=== PATIENT | female | born 1995 | race Caucasian/White ===

== ENCOUNTER 2021-03-15 11:35 | Emergency (ER) | payer OTHER ==
[~2021-03-15] VITALS: Ht 162.6 cm; Wt 77.6 kg
[2021-03-15 11:38] VITALS: BP 136/105
[2021-03-15] MEDS ORDERED: PHENTERMINE H37.5 MG PO (11:45)
[2021-03-15] MEDS ORDERED: TRAZODONE HCL50 MG PO (11:45)
[2021-03-15] MEDS ORDERED: GLYCOPYRROLATE 11 MG PO (11:45)
[2021-03-15] MEDS ORDERED: DESVENLAFAXINE50 MG PO (11:45)
[2021-03-15] MEDS ORDERED: AUGMENTIN 875-1 EACH PO (13:12)
== END 2021-03-15 13:10 | disposition home or self-care (01) ==
LOC: ER 11:35
DX: S61.210A Laceration without foreign body of right index finger without damage to nail, initial encounter (principal); Z79.899 Other long term (current) drug therapy; W26.0XXA Contact with knife, initial encounter; Y93.89 Activity, other specified; Y92.89 Other specified places as the place of occurrence of the external cause; Y99.8 Other external cause status